=== PATIENT | female | born 1935 | race Caucasian/White ===

== ENCOUNTER 2019-11-06 11:34 | Emergency (ER) | payer MEDICARE, OTHER ==
[~2019-11-06] VITALS: Ht 175.3 cm; Wt 83.9 kg
[2019-11-06] MEDS ORDERED: LIDOCAINE 1%-EPI 1:100,000 20 ML VIAL ONE (11:46)
[2019-11-06] MEDS ORDERED: TDAP [DIPH/PERTUSSIS/TET] 0.5 ML VIAL IM ONE ×2 (11:52→12:00)
[2019-11-06] MEDS ORDERED: ACETAMINOPHEN ES 500 MG TABLET ONE (11:52)
[2019-11-06] MEDS ORDERED: ACETAMINOPHEN ES 500 MG TABLET PO ONE (12:00)
[2019-11-06] MEDS ORDERED: LIDOCAINE 2%-EPI 1:100,000 30 ML VIAL TP ONE (12:00)
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
[2019-11-06] MEDS ORDERED: BENZOIN COMPOUND TINCT 60 ML BOTTLE ONE (13:02)
[2019-11-06 14:31] VITALS: BP 145/90
--- NOTE | 2019-11-06 14:31 | NUR ---
Patient discharged to home in stable condition. Written and verbal after care instructions given. Patient verbalizes understanding of instruction.
== END 2019-11-06 14:31 | disposition home or self-care (01) ==
LOC: ER 11:34
DX: S81.811A Laceration without foreign body, right lower leg, initial encounter (principal); S80.212A Abrasion, left knee, initial encounter; S50.312A Abrasion of left elbow, initial encounter; I10 Essential (primary) hypertension; Z98.890 Other specified postprocedural states; Z90.49 Acquired absence of other specified parts of digestive tract; Z96.652 Presence of left artificial knee joint; Z85.3 Personal history of malignant neoplasm of breast; V19.88XA Pedal cyclist (driver) (passenger) injured in other specified transport accidents, initial encounter; Y93.89 Activity, other specified; Y92.89 Other specified places as the place of occurrence of the external cause; Y99.8 Other external cause status
CPT/HCPCS: 12035; 90471; 90715; 99284; A6403 ×2; J3490